=== PATIENT | female | born 1980 | race American Indian/Alaskan Native ===

== ENCOUNTER 2022-06-30 03:49 | Inpatient (IN) | payer MEDICAID ==
[2022-06-30] MEDS ORDERED: IPRATROPIUM 0.02% NEBU 2.5 ML IH ONE ×2 (03:51→03:52)
[2022-06-30] MEDS ORDERED: ALBUTEROL 2.5 MG/3 ML NEBU IH ONE ×2 (03:51→03:52)
[2022-06-30] MEDS ORDERED: TERBUTALINE 1 MG/1 ML INJ SUB-Q ONE (03:51)
[2022-06-30] MEDS ORDERED: MAGNESIUM SULFATE 2 GM/50 ML BAG IV ONE (03:51)
--- NOTE | 2022-06-30 04:01 | Emergency Department Report ---
HPI - General Time Seen by Provider: 06/30/22 03:51 - HPI HPI: Room 2 The patient is a 41-year-old female present with chief complaint of asthma exacerbation. Patient has history of asthma and has been intubated 6 times in the past. Patient states today she developed shortness of breath consistent with her asthma. EMS was called and arrived to find the patient with increased work of breathing and audible wheezing. EMS was unable to establish IV access so the patient was administered albuterol and Solu-Medrol 125 mg IM. EMS states the patient was satting 100% on room air upon arrival. Once the patient arrived to the ED she was immediately placed on BiPAP and administered inline nebs and terbutaline ED Past Medical Hx - Past Medical History Hx Hypertension: Yes Hx Congestive Heart Failure: Yes Hx Deep Vein Thrombosis: Yes Hx Asthma: Yes - Family History Family history: no significant - Social History Smoking Status: Never Smoker Substance Use Type: None (Denies illicit drug use) - Medications Home Medications: Home Medications Medication Instructions Recorded Confirmed Last Taken Type Apixaban [Eliquis] 5 mg PO BID 06/30/22 07/01/22 Unknown History Budesonide/Formoterol Fumarate 1 puff INHALATION DAILY 06/30/22 07/01/22 Unknown History [Symbicort 160-4.5 Mcg Inhaler] Duloxetine HCl [Cymbalta] 60 mg pe PO DAILY 06/30/22 07/01/22 Unknown History Folic Acid [Folvite] 1 mg PO QDAY 06/30/22 07/01/22 Unknown History Gabapentin 300 mg PO DAILY 06/30/22 07/01/22 Unknown History Montelukast [Singulair] 10 mg PO QPM 06/30/22 07/01/22 Unknown History amLODIPine [Norvasc] 10 mg PO DAILY 06/30/22 07/01/22 Unknown History Albuterol Mdi (or & Nicu Only) 2 puff IH QID PRN 07/01/22 07/01/22 Unknown History [ProAir HFA Inhaler] Lidocaine [Lidoderm] 1 patch TP DAILY 07/01/22 07/01/22 Unknown History Ondansetron [Zofran Odt] 4 mg PO BID 07/01/22 07/01/22 Unknown History ED Review of Systems ROS: Stated complaint: ULYSSES Other details as noted in HPI Comment: Unobtainable due to pts medical conditions Respiratory: shortness of breath, wheezing Physical Exam - Physical Exam Physical Exam: GENERAL: The patient is well-developed well-nourished female lying on stretcher with increased work of breathing and audible wheezing. [] HEENT: Normocephalic. Atraumatic. Extraocular motions are intact. Patient has moist mucous membranes. NECK: Supple. Trachea midline CHEST/LUNGS: Diffuse wheezing, increased work of breathing, accessory muscle use HEART/CARDIOVASCULAR: Regular. There is tachycardia. There is no gallop rub or murmur. ABDOMEN: Abdomen is soft, nontender. Patient has normal bowel sounds. There is no abdominal distention. SKIN: There is no rash. There is no edema. There is no diaphoresis. NEURO: The patient is awake, alert, and oriented. The patient is cooperative. The patient has no focal neurologic deficits. The patient has normal speech. GCS 15 MUSCULOSKELETAL: There is no evidence of acute injury. ED Course - Reevaluation(s) Reevaluation #1: 06/30/22 04:00 Patient refuses to allow the nurses to place peripheral IV. When I go to discuss this with her and the need for IV access in case she becomes sicker and requires intubation the patient closes her eyes and turns her head away from me without responding. Patient refuses to engage or allow IV access ED Medical Decision Making - Lab Data Result diagrams: 07/02/22 05:08 07/02/22 05:08 - Differential Diagnosis Acute asthma exacerbation Critical care attestation.: If time is entered above; I have spent that time in minutes in the direct care of this critically ill patient, excluding procedure time. ED Disposition Clinical Impression: Acute asthma exacerbation Disposition: ADMITTED INPATIENT Is pt being admited?: Yes Does the pt Need Aspirin: No Condition: Stable
--- NOTE | 2022-06-30 04:51 | XRay Report ---
CHEST 1 VIEW INDICATION / CLINICAL INFORMATION: chest pain/SOB. COMPARISON: None available. FINDINGS: SUPPORT DEVICES: None. HEART / MEDIASTINUM: Heart size is within normal limits. Mediastinal contour demonstrates no signific ant abnormality. LUNGS / PLEURA: Lungs are clear for degree of inspiration and technique utilized. BONES: No significant osseous abnormality. ADDITIONAL FINDINGS: No significant additional findings. IMPRESSION: 1. No active cardiopulmonary disease. Signer Name: Armand Monsalve II, MD Signed: 06/30/2022 4:46 AM Workstation Name: [id number]
[2022-06-30 05:29] LABS: Basophils % (Auto) 0.8 % (0.0-1.8); Eosinophils % (Auto) 0.6 % (0.0-4.3); Hematocrit 32.6 % (30.3-42.9); Hemoglobin 10.4 gm/dl (10.1-14.3); Lymphocytes # (Auto) 1.8 K/mm3 (1.2-5.4); Lymphocytes % (Auto) 41.5 % (13.4-35.0); Mean Corpuscular HGB Conc 32 % (30-34); Mean Corpuscular Volume 79 fl (79-97); Monocytes # (Auto) 0.5 K/mm3 (0.0-0.8); Monocytes % (Auto) 10.3 % (0.0-7.3); Platelet Count 269 K/mm3 (140-440); Red Blood Count 4.13 M/mm3 (3.65-5.03); Red Cell Distribution Width 18.1 % (13.2-15.2)
[2022-06-30 05:42] LABS: Blood Urea Nitrogen 6 mg/dL (7-17); Calcium 8.1 mg/dL (8.4-10.2); Hemolysis Index 517
[2022-06-30 05:47] LABS: BUN/Creatinine Ratio 9
[2022-06-30] MEDS ORDERED: ONDANSETRON 4 MG/2 ML INJ IV PRN (05:57)
[2022-06-30] MEDS ORDERED: ACETAMINOPHEN 325 MG TAB PO PRN (05:57)
--- NOTE | 2022-06-30 08:25 | Progress Note ---
Assessment and Plan Assessment and plan: --Acute hypoxic respiratory failure requiring BiPAP/present on admission Due to acute exacerbation of bronchial asthma Treat the underlying cause, nebulizers, patient allergic to steroids Oxygen titrate O2 sats to more than 90%, wean as tolerated Home O2 evaluation prior to discharge -- Acute exacerbation of bronchial asthma; Oxygen titrate O2 sats to more than 90%, nebulizers, Inhalation steroids[patient allergic to prednisone] Unable to give steroids as patient is allergic Antibiotics for possible pneumonitis Supportive care -- Obesity; BMI 35.5 Counseling weight reduction, diet modification exercise as tolerated -- DVT prophylaxis; Subcu Lovenox -- Full CODE STATUS -- Advance care planning; Closely monitor the patient and adjust management as needed Plan of care reviewed with the patient and her nurse Hospitalist Physical - Constitutional Vitals: Temp Pulse Resp BP Pulse Ox 97.7 F 100 H 20 113/75 100 06/30/22 04:33 06/30/22 05:15 06/30/22 05:15 06/30/22 05:15 06/30/22 05:15 Results - Labs CBC & Chem 7: 06/30/22 05:06 06/30/22 06:01 Labs: Laboratory Last Values WBC 4.4 K/mm3 (4.5-11.0) L 06/30/22 05:06 RBC 4.13 M/mm3 (3.65-5.03) 06/30/22 05:06 Hgb 10.4 gm/dl (10.1-14.3) 06/30/22 05:06 Hct 32.6 % (30.3-42.9) 06/30/22 05:06 MCV 79 fl (79-97) 06/30/22 05:06 MCH 25 pg (28-32) L 06/30/22 05:06 MCHC 32 % (30-34) 06/30/22 05:06 RDW 18.1 % (13.2-15.2) H 06/30/22 05:06 Plt Count 269 K/mm3 (140-440) 06/30/22 05:06 Lymph % (Auto) 41.5 % (13.4-35.0) H 06/30/22 05:06 [place] % (Auto) 10.3 % (0.0-7.3) H 06/30/22 05:06 Eos % (Auto) 0.6 % (0.0-4.3) 06/30/22 05:06 Baso % (Auto) 0.8 % (0.0-1.8) 06/30/22 05:06 Lymph # (Auto) 1.8 K/mm3 (1.2-5.4) 06/30/22 05:06 [place] # (Auto) 0.5 K/mm3 (0.0-0.8) 06/30/22 05:06 Eos # (Auto) 0.0 K/mm3 (0.0-0.4) 06/30/22 05:06 Baso # (Auto) 0.0 K/mm3 (0.0-0.1) 06/30/22 05:06 Seg Neutrophils % 46.8 % (40.0-70.0) 06/30/22 05:06 Seg Neutrophils # 2.1 K/mm3 (1.8-7.7) 06/30/22 05:06 Sodium 141 mmol/L (137-145) 06/30/22 05:06 Potassium 4.5 mmol/L (3.6-5.0) 06/30/22 06:01 Chloride 106.0 mmol/L (98-107) 06/30/22 05:06 Carbon Dioxide 22 mmol/L (22-30) 06/30/22 05:06 Anion Gap 20 mmol/L 06/30/22 05:06 BUN 6 mg/dL (7-17) L 06/30/22 05:06 Creatinine 0.7 mg/dL (0.6-1.2) 06/30/22 05:06 Estimated GFR > 60 ml/min 06/30/22 05:06 BUN/Creatinine Ratio 9 % 06/30/22 05:06 Glucose 99 mg/dL (65-100) 06/30/22 05:06 Calcium 8.1 mg/dL (8.4-10.2) L 06/30/22 05:06 Active Medications - Current Medications Current Medications: Generic Name Dose Route Start Last Admin Trade Name Freq PRN Reason Stop Dose Admin Acetaminophen 650 mg 06/30/22 05:57 Acetaminophen 325 Mg Tab PO Q4H PRN Pain MILD(1-3)/Fever >100.5/RODRIGUEZ Morphine Sulfate 2 mg 06/30/22 05:57 Morphine 2 Mg/1 Ml Inj IV Q4H PRN Pain, Moderate (4-6) Ondansetron HCl 4 mg 06/30/22 05:57 Ondansetron 4 Mg/2 Ml Inj IV Q8H PRN Nausea And Vomiting Sodium Chloride 10 ml 06/30/22 10:00 Sodium Chloride 0.9% 10 Ml Flush Syringe IV BID SHWETA Sodium Chloride 10 ml 06/30/22 05:57 Sodium Chloride 0.9% 10 Ml Flush Syringe IV PRN PRN LINE FLUSH
[2022-06-30] MEDS ORDERED: ALBUTEROL 2.5 MG/3 ML NEBU IH PRN (08:29)
--- NOTE | 2022-06-30 09:27 | History and Physical Report ---
History of Present Illness Date of examination: 06/30/22 Date of admission: 06/30/22 05:57 Chief complaint: Worsening shortness of breath and acute hypoxic respiratory failure History of present illness: 41-year-old , obese female patient with BMI of 35.5 with significant past medical history of bronchial asthma follows with [place] physicians, not on home oxygen . Gives history of intubation x6 in the past presented to the emergency room with worsening shortness of breath this morning. When EMS found her she had severe audible wheeze with increased work of fernando thing, severely hypoxemic requiring BiPAP Received 125 mg of Solu-Medrol in route as well as albuterol with significant improvement of O2 sats In ED patient received BiPAP, chest x-ray no acute abnormalities noted When I evaluated the patient patient is on 2 to 3 L of nasal cannula oxygen saturating about 95 Mild short of breath Patient denies any chest pain Past History Past Medical History: DVT, heart failure, hypertension, hyperlipidemia, other (Asthma, peripheral neuropathy) Past Surgical History: No surgical history Social history: denies: smoking, alcohol abuse, prescription drug abuse Family history: CAD Medications and Allergies Allergies Allergy/AdvReac Type Severity Reaction Status Date / Time ketorolac [From Toradol] Allergy Itching Verified 06/30/22 03:54 prednisone Allergy Unknown Verified 06/30/22 03:54 tramadol Allergy Hives Verified 06/30/22 03:54 Home Medications Medication Instructions Recorded Confirmed Last Taken Type Apixaban [Eliquis] 5 mg PO BID 06/30/22 06/30/22 Unknown History Budesonide/Formoterol Fumarate 1 puff INHALATION DAILY 06/30/22 06/30/22 Unknown History [Symbicort 160-4.5 Mcg Inhaler] Duloxetine HCl [Cymbalta] 60 mg pe PO DAILY 06/30/22 06/30/22 Unknown History Folic Acid [Folvite] 1 mg PO QDAY 06/30/22 06/30/22 Unknown History Gabapentin 300 mg PO DAILY 06/30/22 06/30/22 Unknown History Montelukast [Singulair] 10 mg PO QPM 06/30/22 06/30/22 Unknown History Sertraline [Zoloft] 100 mg PO QDAY 06/30/22 06/30/22 Unknown History amLODIPine [Norvasc] 10 mg PO DAILY 06/30/22 06/30/22 Unknown History Active Meds: Active Medications Acetaminophen (Acetaminophen 325 Mg Tab) 650 mg PO Q4H PRN PRN Reason: Pain MILD(1-3)/Fever >100.5/RODRIGUEZ Albuterol (Albuterol 2.5 Mg/3 Ml Nebu) 2.5 mg IH Q4HRT PRN PRN Reason: Shortness Of Breath Albuterol/Ipratropium (Ipratropium/Albuterol Sulfate 3 Ml Ampul.Neb) 1 ampul IH Q6HRT SHWETA Docusate Sodium (Docusate Sodium 100 Mg Cap) 100 mg PO BID PRN PRN Reason: Constipation Enoxaparin Sodium (Enoxaparin 40 Mg/0.4 Ml Inj) 40 mg SUB-Q QDAY@2200 SHWETA; Protocol Morphine Sulfate (Morphine 2 Mg/1 Ml Inj) 2 mg IV Q4H PRN PRN Reason: Pain, Moderate (4-6) Ondansetron HCl (Ondansetron 4 Mg/2 Ml Inj) 4 mg IV Q8H PRN PRN Reason: Nausea And Vomiting Pantoprazole Sodium (Pantoprazole 40 Mg Tab) 40 mg PO QDAC [facility] Sodium Chloride (Sodium Chloride 0.9% 10 Ml Flush Syringe) 10 ml IV BID SHWETA Sodium Chloride (Sodium Chloride 0.9% 10 Ml Flush Syringe) 10 ml IV PRN PRN PRN Reason: LINE FLUSH Review of Systems Constitutional: fatigue, weakness, no weight loss, no weight gain Ears, nose, mouth and throat: no nasal congestion, no nasal discharge Cardiovascular: shortness of breath, no chest pain, no orthopnea, no palpitations Respiratory: cough, shortness of breath Gastrointestinal: no abdominal pain, no nausea, no vomiting Genitourinary Female: no flank pain, no dysuria Musculoskeletal: no myalgias, no arthritis Integumentary: no rash, no lesions Neurological: no seizures, no syncope, no tremors Psychiatric: no anxiety, no depression Endocrine: no cold intolerance, no heat intolerance Hematologic/Lymphatic: no easy bruising, no easy bleeding Allergic/Immunologic: no urticaria, no allergic rhinitis Exam - Constitutional Vitals: Temp Pulse Resp BP Pulse Ox 97.7 F 102 H 22 103/61 99 06/30/22 04:33 06/30/22 07:00 06/30/22 07:00 06/30/22 07:00 06/30/22 07:00 General appearance: Present: no acute distress, well-nourished, obese - EENT Eyes: Present: PERRL, EOM intact - Neck Neck: Present: supple, normal ROM - Respiratory Respiratory effort: normal Respiratory: bilateral: diminished, rhonchi, wheezing, negative: rales - Cardiovascular Rhythm: regular Heart Sounds: Present: S1 & S2 - Extremities Extremities: no ischemia, pulses intact - Abdominal General gastrointestinal: Present: soft, non-tender, non-distended, normal bowel sounds - Integumentary Integumentary: Present: clear, warm - Musculoskeletal Musculoskeletal: strength equal bilaterally, generalized weakness - Psychiatric Psychiatric: appropriate mood/affect, cooperative - Neurologic Neurologic: moves all extremities Results - Labs CBC & Chem 7: 06/30/22 05:06 06/30/22 06:01 Labs: Abnormal lab results 06/30/22 06/30/22 Range/Units 05:06 05:06 WBC 4.4 L (4.5-11.0) K/mm3 MCH 25 L (28-32) pg RDW 18.1 H (13.2-15.2) % Lymph % (Auto) 41.5 H (13.4-35.0) % [place] % (Auto) 10.3 H (0.0-7.3) % BUN 6 L (7-17) mg/dL Calcium 8.1 L (8.4-10.2) mg/dL Assessment and Plan Assessment and plan: --Acute hypoxic respiratory failure requiring BiPAP/present on admission Due to acute exacerbation of bronchial asthma Treat the underlying cause, nebulizers, patient allergic to steroids Oxygen titrate O2 sats to more than 90%, wean as tolerated Home O2 evaluation prior to discharge -- Acute exacerbation of bronchial asthma; Oxygen titrate O2 sats to more than 90%, nebulizers, Inhalation steroids[patient allergic to prednisone] Unable to give steroids as patient is allergic Antibiotics for possible pneumonitis Supportive care -- Obesity; BMI 35.5 Counseling weight reduction, diet modification exercise as tolerated -- DVT prophylaxis; Subcu Lovenox -- Full CODE STATUS -- Advance care planning; 30 minutes Discussed in detail patient's condition, tests and reports Discussed treatment plan, diagnosis, discussed prognosis Preventive health care counseling; 30 minutes Advised importance of adhering to the treatment plan, exercise and weight reduction Dietary modification patient verbalized understanding Closely monitor the patient and adjust management as needed Plan of care reviewed with the patient and her nurse Disposition; follow clinically discharge when stable Home O2 evaluation discharge
[2022-06-30] MEDS ORDERED: DOCUSATE SODIUM 100 MG CAP PO PRN (10:00)
[2022-06-30] MEDS: methylPREDNISolone Sod Succinate 125 MG/2 ML INJ IV SCH ×2 (14:47→22:12)
[2022-06-30] MEDS: MORPHINE 2 MG/1 ML INJ IV PRN (21:18)
[2022-06-30] MEDS ORDERED: diphenhydrAMINE 50 MG/ML VIAL IV ONE (22:11)
[2022-06-30] MEDS: ENOXAPARIN 40 MG/0.4 ML INJ SUB-Q SCH (22:11)
[2022-06-30] MEDS ORDERED: diphenhydrAMINE 50 MG/ML VIAL ONE (22:15)
[2022-06-30] MEDS: IPRATROPIUM/ALBUTEROL SULFATE 3 ML AMPUL.NEB IH SCH ×2 (22:40→22:43)
[2022-07-01] MEDS: MORPHINE 2 MG/1 ML INJ IV PRN ×4 (03:00→20:25)
[2022-07-01] MEDS: IPRATROPIUM/ALBUTEROL SULFATE 3 ML AMPUL.NEB IH SCH ×4 (04:30→22:18)
[2022-07-01 05:10] LABS: Blood Urea Nitrogen 7 mg/dL (7-17)
[2022-07-01 05:11] LABS: Hemolysis Index 61
[2022-07-01 05:13] LABS: BUN/Creatinine Ratio 12
[2022-07-01] MEDS: PANTOPRAZOLE 40 MG TAB PO SCH (08:40)
[2022-07-01] MEDS: methylPREDNISolone Sod Succinate 125 MG/2 ML INJ IV SCH ×4 (08:40→21:19)
--- NOTE | 2022-07-01 09:38 | Progress Note ---
Assessment and Plan Assessment and plan: 41-year-old , obese female patient with BMI of 35.5 with significant past medical history of bronchial asthma follows with [place] physicians, not on home oxygen . Gives history of intubation x6 in the past presented to the emergency room with worsening shortness of breath and admitted with diagnosis of acute asthma exacerbation. In ED patient received BiPAP, chest x-ray no acute abnormalities noted Acute hypoxic respiratory failure Acute asthma exacerbation Obesity, BMI 35.5 History of DVT History of CHF Hypertension Hyperlipidemia Hospital course: 07/01/2022. Continue O2 to maintain sats greater than 92%. Continue inhaled corticosteroids, bronchodilators/nebulizer treatments. Patient unable to receive steroids due to allergy. Continue empiric antibiotics. History Interval history: No new issues overnight Hospitalist Physical - Constitutional Vitals: Temp Pulse Resp BP Pulse Ox 98.2 F 63 18 120/79 100 07/01/22 07:47 07/01/22 07:47 07/01/22 07:47 07/01/22 07:47 07/01/22 09:31 General appearance: Present: no acute distress, well-nourished, obese - EENT Eyes: Present: PERRL, EOM intact ENT: hearing intact, clear oral mucosa, dentition normal - Neck Neck: Present: supple, normal ROM - Respiratory Respiratory effort: normal Respiratory: bilateral: CTA - Cardiovascular Rhythm: regular Heart Sounds: Present: S1 & S2. Absent: gallop, rub - Extremities Extremities: no ischemia, No edema, Full ROM - Abdominal General gastrointestinal: soft, non-tender, non-distended, normal bowel sounds - Integumentary Integumentary: Present: clear, warm, dry - Neurologic Neurologic: CNII-XII intact, moves all extremities Results - Labs CBC & Chem 7: 06/30/22 05:06 07/01/22 03:57 Labs: Laboratory Last Values WBC 4.4 K/mm3 (4.5-11.0) L 06/30/22 05:06 RBC 4.13 M/mm3 (3.65-5.03) 06/30/22 05:06 Hgb 10.4 gm/dl (10.1-14.3) 06/30/22 05:06 Hct 32.6 % (30.3-42.9) 06/30/22 05:06 MCV 79 fl (79-97) 06/30/22 05:06 MCH 25 pg (28-32) L 06/30/22 05:06 MCHC 32 % (30-34) 06/30/22 05:06 RDW 18.1 % (13.2-15.2) H 06/30/22 05:06 Plt Count 269 K/mm3 (140-440) 06/30/22 05:06 Lymph % (Auto) 41.5 % (13.4-35.0) H 06/30/22 05:06 [place] % (Auto) 10.3 % (0.0-7.3) H 06/30/22 05:06 Eos % (Auto) 0.6 % (0.0-4.3) 06/30/22 05:06 Baso % (Auto) 0.8 % (0.0-1.8) 06/30/22 05:06 Lymph # (Auto) 1.8 K/mm3 (1.2-5.4) 06/30/22 05:06 [place] # (Auto) 0.5 K/mm3 (0.0-0.8) 06/30/22 05:06 Eos # (Auto) 0.0 K/mm3 (0.0-0.4) 06/30/22 05:06 Baso # (Auto) 0.0 K/mm3 (0.0-0.1) 06/30/22 05:06 Seg Neutrophils % 46.8 % (40.0-70.0) 06/30/22 05:06 Seg Neutrophils # 2.1 K/mm3 (1.8-7.7) 06/30/22 05:06 Sodium 136 mmol/L (137-145) L 07/01/22 03:57 Potassium 5.1 mmol/L (3.6-5.0) H 07/01/22 03:57 Chloride 102.7 mmol/L (98-107) 07/01/22 03:57 Carbon Dioxide 21 mmol/L (22-30) L 07/01/22 03:57 Anion Gap 17 mmol/L 07/01/22 03:57 BUN 7 mg/dL (7-17) 07/01/22 03:57 Creatinine 0.6 mg/dL (0.6-1.2) 07/01/22 03:57 Estimated GFR > 60 ml/min 07/01/22 03:57 BUN/Creatinine Ratio 12 % 07/01/22 03:57 Glucose 174 mg/dL (65-100) H 07/01/22 03:57 Calcium 9.0 mg/dL (8.4-10.2) 07/01/22 03:57 Hernández/IV: Voiding Method Toilet Active Medications - Current Medications Current Medications: Generic Name Dose Route Start Last Admin Trade Name Freq PRN Reason Stop Dose Admin Acetaminophen 650 mg 06/30/22 05:57 Acetaminophen 325 Mg Tab PO Q4H PRN Pain MILD(1-3)/Fever >100.5/RODRIGUEZ Albuterol 2.5 mg 06/30/22 08:29 Albuterol 2.5 Mg/3 Ml Nebu IH Q4HRT PRN Shortness Of Breath Albuterol/Ipratropium 1 ampul 06/30/22 14:00 07/01/22 09:31 Ipratropium/Albuterol Sulfate 3 Ml Ampul.Neb IH Not Given Q6HRT [facility] Docusate Sodium 100 mg 06/30/22 10:00 Docusate Sodium 100 Mg Cap PO BID PRN Constipation Enoxaparin Sodium 40 mg 06/30/22 22:00 06/30/22 22:11 Enoxaparin 40 Mg/0.4 Ml Inj SUB-Q 40 mg QDAY@2200 SHWETA Administration Protocol Methylprednisolone Sodium Succinate 60 mg 06/30/22 14:00 07/01/22 08:40 Methylprednisolone Sod Succinate 125 Mg/2 Ml Inj IV 60 mg Q8HR SHWETA Administration Morphine Sulfate 2 mg 06/30/22 05:57 07/01/22 08:39 Morphine 2 Mg/1 Ml Inj IV 2 mg Q4H PRN Administration Pain, Moderate (4-6) Ondansetron HCl 4 mg 06/30/22 05:57 Ondansetron 4 Mg/2 Ml Inj IV Q8H PRN Nausea And Vomiting Pantoprazole Sodium 40 mg 07/01/22 07:30 07/01/22 08:40 Pantoprazole 40 Mg Tab PO 40 mg QDAC SHWETA Administration Sodium Chloride 10 ml 06/30/22 10:00 07/01/22 03:04 Sodium Chloride 0.9% 10 Ml Flush Syringe IV 10 ml BID SHWETA Administration Sodium Chloride 10 ml 06/30/22 05:57 07/01/22 08:40 Sodium Chloride 0.9% 10 Ml Flush Syringe IV 10 ml PRN PRN Administration LINE FLUSH
[2022-07-01] MEDS: ENOXAPARIN 40 MG/0.4 ML INJ SUB-Q SCH ×2 (20:25→21:18)
[2022-07-02] MEDS: MORPHINE 2 MG/1 ML INJ IV PRN ×3 (00:46→09:25)
[2022-07-02] MEDS: IPRATROPIUM/ALBUTEROL SULFATE 3 ML AMPUL.NEB IH SCH ×4 (02:00→20:52)
[2022-07-02] MEDS: methylPREDNISolone Sod Succinate 125 MG/2 ML INJ IV SCH ×3 (05:01→21:33)
[2022-07-02 05:59] LABS: Hematocrit 34.8 % (30.3-42.9); Hemoglobin 11.1 gm/dl (10.1-14.3); Mean Corpuscular HGB Conc 32 % (30-34); Mean Corpuscular Volume 79 fl (79-97); Platelet Count 265 K/mm3 (140-440); Red Blood Count 4.42 M/mm3 (3.65-5.03); Red Cell Distribution Width 18.5 % (13.2-15.2)
[2022-07-02 06:06] LABS: Blood Urea Nitrogen 10 mg/dL (7-17); Calcium 8.7 mg/dL (8.4-10.2); Hemolysis Index 4
[2022-07-02 06:09] LABS: BUN/Creatinine Ratio 14
[2022-07-02 06:49] LABS: Basophils % (Manual) 0 % (0.0-1.8); Eosinophils % (Manual) 0 % (0.0-4.3); Hypochromasia 1+; Platelet Estimate Consistent w Auto; Total Cells Counted 100
[2022-07-02] MEDS: PANTOPRAZOLE 40 MG TAB PO SCH (09:25)
[2022-07-02] MEDS: oxyCODONE /ACETAMINOPHEN 5-325MG TAB PO PRN ×2 (14:59→21:33)
--- NOTE | 2022-07-02 17:18 | Progress Note ---
Assessment and Plan Assessment and plan: Acute hypoxic respiratory failure-resolving patient currently has chest tightness. Reevaluated. Patient sats were 90%. We will treat patient for another 24 hours. Discharge in a.m. Discontinue morphine. Initiate p.o. pain medications. Acute asthma exacerbation-secondary to asthma exacerbation and obesity hypoventilation syndrome. Improving. Obesity, BMI 35.5-0 decrease caloric intake further weight loss. History of DVT History of CHF-no evidence of congestive heart failure at this time. All appears to be related to asthma. Hypertension-maintains fair control at this particular time. Continue present medical management. Hyperlipidemia History Interval history: 41-year-old , obese female patient with BMI of 35.5 with significant past medica l history of bronchial asthma follows with [facility], not on home oxygen . Gives history of intubation x6 in the past presented to the emergency room with worsening shortness of breath this morning. When EMS found her she had severe audible wheeze with increased work of breathing, severely hypoxemic requiring BiPAP Received 125 mg of Solu-Medrol in route as well as albuterol with significant improvement of O2 sats 07/02/2022 Patient states today that she has chest tightness and shortness of breath. Noted that patient is asking for morphine every 3 hours. Does not appear to be any significant pain. When I did mention I will discontinue morphine patient became somewhat upset. Patient does not appear to be any significant pain to me. Possible chest tightness. Mild wheezing decreased air entry. Important to note the patient recently did just receive a breathing treatment prior to me coming in and will reevaluate in several hours. Hospitalist Physical - Constitutional Vitals: Temp Pulse Resp BP Pulse Ox 97.9 F 62 17 123/76 97 07/02/22 14:58 07/02/22 14:58 07/02/22 14:58 07/02/22 14:58 07/02/22 14:58 General appearance: Present: no acute distress, well-nourished, obese - EENT Eyes: Present: PERRL, EOM intact ENT: hearing intact - Neck Neck: Present: supple, normal ROM, other (Obese) - Respiratory Respiratory: right: wheezing (Mild wheezing), bilateral: diminished - Cardiovascular Rhythm: regular - Extremities Extremities: no ischemia, pulses intact, pulses symmetrical, Full ROM - Abdominal General gastrointestinal: soft, non-tender, non-distended, normal bowel sounds - Neurologic Neurologic: CNII-XII intact, focal deficits, moves all extremities Results - Labs CBC & Chem 7: 07/02/22 05:08 07/02/22 05:08 Labs: Laboratory Last Values WBC 8.5 K/mm3 (4.5-11.0) 07/02/22 05:08 RBC 4.42 M/mm3 (3.65-5.03) 07/02/22 05:08 Hgb 11.1 gm/dl (10.1-14.3) 07/02/22 05:08 Hct 34.8 % (30.3-42.9) 07/02/22 05:08 MCV 79 fl (79-97) 07/02/22 05:08 MCH 25 pg (28-32) L 07/02/22 05:08 MCHC 32 % (30-34) 07/02/22 05:08 RDW 18.5 % (13.2-15.2) H 07/02/22 05:08 Plt Count 265 K/mm3 (140-440) 07/02/22 05:08 Lymph % (Auto) 41.5 % (13.4-35.0) H 06/30/22 05:06 [place] % (Auto) 10.3 % (0.0-7.3) H 06/30/22 05:06 Eos % (Auto) 0.6 % (0.0-4.3) 06/30/22 05:06 Baso % (Auto) 0.8 % (0.0-1.8) 06/30/22 05:06 Lymph # (Auto) 1.8 K/mm3 (1.2-5.4) 06/30/22 05:06 [place] # (Auto) 0.5 K/mm3 (0.0-0.8) 06/30/22 05:06 Eos # (Auto) 0.0 K/mm3 (0.0-0.4) 06/30/22 05:06 Baso # (Auto) 0.0 K/mm3 (0.0-0.1) 06/30/22 05:06 Add Manual Diff Complete 07/02/22 05:08 Total Counted 100 07/02/22 05:08 Seg Neutrophils % Senior Scientist 07/02/22 05:08 Seg Neuts % (Manual) 94.0 % (40.0-70.0) H 07/02/22 05:08 Band Neutrophils % 0 % 07/02/22 05:08 Lymphocytes % (Manual) 5.0 % (13.4-35.0) L 07/02/22 05:08 Reactive Lymphs % (Man) 0 % 07/02/22 05:08 Monocytes % (Manual) 1.0 % (0.0-7.3) 07/02/22 05:08 Eosinophils % (Manual) 0 % (0.0-4.3) 07/02/22 05:08 Basophils % (Manual) 0 % (0.0-1.8) 07/02/22 05:08 Metamyelocytes % 0 % 07/02/22 05:08 Myelocytes % 0 % 07/02/22 05:08 Promyelocytes % 0 % 07/02/22 05:08 Blast Cells % 0 % 07/02/22 05:08 Nucleated RBC % Not Reportable 07/02/22 05:08 Seg Neutrophils # 2.1 K/mm3 (1.8-7.7) 06/30/22 05:06 Seg Neutrophils # Man 8.0 K/mm3 (1.8-7.7) H 07/02/22 05:08 Band Neutrophils # 0.0 K/mm3 07/02/22 05:08 Lymphocytes # (Manual) 0.4 K/mm3 (1.2-5.4) L 07/02/22 05:08 Abs React Lymphs (Man) 0.0 K/mm3 07/02/22 05:08 Monocytes # (Manual) 0.1 K/mm3 (0.0-0.8) 07/02/22 05:08 Eosinophils # (Manual) 0.0 K/mm3 (0.0-0.4) 07/02/22 05:08 Basophils # (Manual) 0.0 K/mm3 (0.0-0.1) 07/02/22 05:08 Metamyelocytes # 0.0 K/mm3 07/02/22 05:08 Myelocytes # 0.0 K/mm3 07/02/22 05:08 Promyelocytes # 0.0 K/mm3 07/02/22 05:08 Blast Cells # 0.0 K/mm3 07/02/22 05:08 WBC Morphology Not Reportable 07/02/22 05:08 Hypersegmented Neuts Not Reportable 07/02/22 05:08 Hyposegmented Neuts Not Reportable 07/02/22 05:08 Hypogranular Neuts Not Reportable 07/02/22 05:08 Smudge Cells Not Reportable 07/02/22 05:08 Toxic Granulation Not Reportable 07/02/22 05:08 Toxic Vacuolation Not Reportable 07/02/22 05:08 Dohle Bodies Not Reportable 07/02/22 05:08 Pelger-Huet Anomaly Not Reportable 07/02/22 05:08 Radha Rods Not Reportable 07/02/22 05:08 Platelet Estimate Consistent w auto 07/02/22 05:08 Clumped Platelets Not Reportable 07/02/22 05:08 Plt Clumps, EDTA Not Reportable 07/02/22 05:08 Large Platelets Not Reportable 07/02/22 05:08 Giant Platelets Not Reportable 07/02/22 05:08 Platelet Satelliting Not Reportable 07/02/22 05:08 Plt Morphology Comment Not Reportable 07/02/22 05:08 RBC Morphology Not Reportable 07/02/22 05:08 Dimorphic RBCs Not Reportable 07/02/22 05:08 Polychromasia Not Reportable 07/02/22 05:08 Hypochromasia 1+ 07/02/22 05:08 Poikilocytosis Not Reportable 07/02/22 05:08 Anisocytosis Not Reportable 07/02/22 05:08 Microcytosis Not Reportable 07/02/22 05:08 Macrocytosis Not Reportable 07/02/22 05:08 Spherocytes Not Reportable 07/02/22 05:08 Pappenheimer Bodies Not Reportable 07/02/22 05:08 Sickle Cells Not Reportable 07/02/22 05:08 Target Cells Not Reportable 07/02/22 05:08 Tear Drop Cells Not Reportable 07/02/22 05:08 Ovalocytes Not Reportable 07/02/22 05:08 Helmet Cells Not Reportable 07/02/22 05:08 [place] Bodies Not Reportable 07/02/22 05:08 [place] Rings Not Reportable 07/02/22 05:08 [place] Cells Not Reportable 07/02/22 05:08 Bite Cells Not Reportable 07/02/22 05:08 Crenated Cell Not Reportable 07/02/22 05:08 Elliptocytes Not Reportable 07/02/22 05:08 Acanthocytes (Spur) Not Reportable 07/02/22 05:08 Rouleaux Not Reportable 07/02/22 05:08 Hemoglobin C Crystals Not Reportable 07/02/22 05:08 Schistocytes Not Reportable 07/02/22 05:08 Malaria parasites Not Reportable 07/02/22 05:08 Dereck Bodies Not Reportable 07/02/22 05:08 Hem Pathologist Commnt No 07/02/22 05:08 Sodium 139 mmol/L (137-145) 07/02/22 05:08 Potassium 4.3 mmol/L (3.6-5.0) 07/02/22 05:08 Chloride 105.1 mmol/L (98-107) 07/02/22 05:08 Carbon Dioxide 19 mmol/L (22-30) L 07/02/22 05:08 Anion Gap 19 mmol/L 07/02/22 05:08 BUN 10 mg/dL (7-17) 07/02/22 05:08 Creatinine 0.7 mg/dL (0.6-1.2) 07/02/22 05:08 Estimated GFR > 60 ml/min 07/02/22 05:08 BUN/Creatinine Ratio 14 % 07/02/22 05:08 Glucose 139 mg/dL (65-100) H 07/02/22 05:08 Calcium 8.7 mg/dL (8.4-10.2) 07/02/22 05:08 Hernández/IV: Voiding Method Toilet Active Medications - Current Medications Current Medications: Generic Name Dose Route Start Last Admin Trade Name Freq PRN Reason Stop Dose Admin Acetaminophen 650 mg 06/30/22 05:57 Acetaminophen 325 Mg Tab PO Q4H PRN Pain MILD(1-3)/Fever >100.5/RORDIGUEZ Albuterol 2.5 mg 06/30/22 08:29 Albuterol 2.5 Mg/3 Ml Nebu IH Q4HRT PRN Shortness Of Breath Albuterol/Ipratropium 1 ampul 06/30/22 14:00 07/02/22 14:20 Ipratropium/Albuterol Sulfate 3 Ml Ampul.Neb IH Not Given Q6HRT SHWETA Docusate Sodium 100 mg 06/30/22 10:00 Docusate Sodium 100 Mg Cap PO BID PRN Constipation Enoxaparin Sodium 40 mg 06/30/22 22:00 07/01/22 21:18 Enoxaparin 40 Mg/0.4 Ml Inj SUB-Q Not Given QDAY@2200 [facility] Protocol Methylprednisolone Sodium Succinate 60 mg 06/30/22 14:00 07/02/22 14:58 Methylprednisolone Sod Succinate 125 Mg/2 Ml Inj IV 60 mg Q8HR SHWETA Administration Ondansetron HCl 4 mg 06/30/22 05:57 Ondansetron 4 Mg/2 Ml Inj IV Q8H PRN Nausea And Vomiting Oxycodone/Acetaminophen 1 tab 07/02/22 14:00 07/02/22 14:59 Oxycodone /Acetaminophen 5-325mg Tab PO 1 tab Q6H PRN Administration Pain, Moderate (4-6) Pantoprazole Sodium 40 mg 07/01/22 07:30 07/02/22 09:25 Pantoprazole 40 Mg Tab PO 40 mg QDAC SHWETA Administration Sodium Chloride 10 ml 06/30/22 10:00 07/02/22 09:25 Sodium Chloride 0.9% 10 Ml Flush Syringe IV 10 ml BID SHWETA Administration Sodium Chloride 10 ml 06/30/22 05:57 07/02/22 05:30 Sodium Chloride 0.9% 10 Ml Flush Syringe IV 10 ml PRN PRN Administration LINE FLUSH
[2022-07-02] MEDS: ENOXAPARIN 40 MG/0.4 ML INJ SUB-Q SCH (21:39)
[2022-07-03] MEDS: oxyCODONE /ACETAMINOPHEN 5-325MG TAB PO PRN ×2 (04:04→10:18)
[2022-07-03] MEDS: IPRATROPIUM/ALBUTEROL SULFATE 3 ML AMPUL.NEB IH SCH ×3 (04:21→14:00)
[2022-07-03] MEDS: methylPREDNISolone Sod Succinate 125 MG/2 ML INJ IV SCH (05:16)
--- NOTE | 2022-07-03 08:17 | Discharge Summary ---
Providers - Providers Date of Admission: 06/30/22 05:57 Date of discharge: 07/03/22 Attending physician: SMITH NOBLE Primary care physician: SHAWNA VILLALPANDO Hospitalization Reason for admission: Asthma exacerbation Condition: Stable Hospital course: 41-year-old , obese female patient with BMI of 35.5 with significant past medical history of bronchial asthma follows [facility], not on home oxygen . Gives history of intubation x6 in the past presented to the emergency room with worsening shortness of breath this morning. When EMS found her she had severe audible wheeze with increased work of breathing, severely hypoxemic requiring BiPAP Received 125 mg of Solu-Medrol in route as well as albuterol with significant improvement of O2 sats. The patient was admitted with diagnosis below: Acute asthma exacerbation Obesity, BMI 35.5-0 History of DVT History of CHF-no evidence of congestive heart failure at this time. Hypertension Hyperlipidemia Hospital course: 07/01/2022. Continue O2 to maintain sats greater than 92%. Continue inhaled corticosteroids, bronchodilators/nebulizer treatments. Patient unable to r eceive steroids due to allergy. Continue empiric antibiotics. 07/02/2022 Patient states today that she has chest tightness and shortness of breath. Noted that patient is asking for morphine every 3 hours. Does not appear to be any significant pain. When I did mention I will discontinue morphine patient became somewhat upset. Patient does not appear to be any significant pain to me. Possible chest tightness. Mild wheezing decreased air entry. Important to note the patient recently did just receive a breathing treatment prior to me coming in and will reevaluate in several hours. 07/03/2022. Patient appears to be back to baseline respiratory status. Patient currently with saturations of 98% on room air. No clinical evidence of wheezing. Patient is felt to have received maximal hospital benefit and will be discharged home. Dedicated discharge time 32 minutes Disposition: 01 HOME / SELF CARE / HOMELESS Final Discharge Diagnosis (Prints w/discharge instructions): Acute asthma exacerbation. Obesity, BMI 35.5-0. History of DVT. History of CHF-no evidence of congestive heart failure at this time. Hypertension. Hyperlipidemia Core Measure Documentation - Palliative Care Palliative Care/ Comfort Measures: Not Applicable - Core Measures Any of the following diagnoses?: none Exam - Constitutional Vitals: Temp Pulse Resp BP Pulse Ox 97.9 F 51 L 18 123/78 97 07/03/22 07:15 07/03/22 07:15 07/03/22 07:15 07/03/22 07:15 07/03/22 07:15 General appearance: Present: no acute distress, well-nourished - EENT Eyes: Present: PERRL ENT: hearing intact, clear oral mucosa - Neck Neck: Present: supple, normal ROM - Respiratory Respiratory effort: normal Respiratory: bilateral: CTA - Cardiovascular Heart Sounds: Present: S1 & S2. Absent: rub, click - Extremities Extremities: pulses symmetrical, No edema Peripheral Pulses: within normal limits - Abdominal General gastrointestinal: Present: soft, non-tender, non-distended, normal bowel sounds Female genitourinary: Present: normal - Integumentary Integumentary: Present: clear, warm, dry - Musculoskeletal Musculoskeletal: gait normal, strength equal bilaterally - Psychiatric Psychiatric: appropriate mood/affect, intact judgment & insight - Neurologic Neurologic: CNII-XII intact, moves all extremities Plan Activity: advance as tolerated Weight Bearing Status: Weight Bear as Tolerated Diet: regular Follow up with: SHAWNA VILLALPANDO MD [Primary Care Provider] - 7 Days Prescriptions: amLODIPine 10 mg PO DAILY #30 tab Duloxetine HCl [Cymbalta] 60 mg pe PO DAILY #60 tab Apixaban [Eliquis] 5 mg PO BID #60 tab Folic Acid [Folvite] 1 mg PO QDAY #30 tab Gabapentin 300 mg PO DAILY #30 cap Albuterol Mdi (or & Nicu Only) [ProAir HFA Inhaler] 2 puff IH QID PRN 30 Days PRN Reason: Shortness Of Breath Montelukast [Singulair] 10 mg PO QPM #30 tab Budesonide/Formoterol Fumarate [Symbicort 160-4.5 Mcg Inhaler] 1 puff INHALATION DAILY 30 Days
[2022-07-03] MEDS: PANTOPRAZOLE 40 MG TAB PO SCH (10:18)
[2022-07-03 11:47] VITALS: BP 153/83
== END 2022-07-03 14:32 | disposition home or self-care (01) | DRG 189 ==
LOC: ED 03:49 → 4A 05:57
PROVIDERS: ADMIT Hospitalist; ATTEND Hospitalist
PROC: 5A09357 Assistance with Respiratory Ventilation, Less than 24 Consecutive Hours, Continuous Positive Airway Pressure (ICD-10-PCS; principal; 2022-06-30)
DX: J96.01 Acute respiratory failure with hypoxia (principal); J45.901 Unspecified asthma with (acute) exacerbation; E78.5 Hyperlipidemia, unspecified; G62.9 Polyneuropathy, unspecified; Z68.35 Body mass index [BMI] 35.0-35.9, adult; E66.2 Morbid (severe) obesity with alveolar hypoventilation; I10 Essential (primary) hypertension; Z82.49 Family history of ischemic heart disease and other diseases of the circulatory system; Z88.5 Allergy status to narcotic agent; Z88.0 Allergy status to penicillin; Z88.8 Allergy status to other drugs, medicaments and biological substances; Z91.018 Allergy to other foods
CPT/HCPCS: 36415; 71045; 80048; 84132; 85007; 85025; 94640; 94644; 94760; 96365; 96372; 99285; G0378; J1200; J1650; J2270; J2930; J3105; J3475